=== PATIENT | male | born 1940 | race American Indian/Alaskan Native ===

== ENCOUNTER 2020-11-18 13:29 | Inpatient (IN) | payer MEDICARE, MEDICAID ==
[~2020-11-18] VITALS: Ht 177.8 cm; Wt 54.5 kg
[2020-11-18 14:00] LABS: BASOPHILS % (AUTO) 0.2 % (0-1); EOSINOPHILS % (AUTO) 0 % (0-6); HEMATOCRIT 33.9 % (42.0-52.0); HEMOGLOBIN 11.1 g/dl (14.0-17.9); LYMPHOCYTES # (AUTO) 0.9 X10'3 (1.1-4.8); LYMPHOCYTES % (AUTO) 8.3 % (21-51); MEAN CORPUSCULAR HEMOGLOBIN 29.7 PG (27.0-31.0); MEAN CORPUSCULAR HGB CONC 32.8 g/dL (33.0-36.5); MEAN CORPUSCULAR VOLUME 90.7 FL (78-98); MEAN PLATELET VOLUME 7.3 FL (7.4-10.4); MONOCYTES # (AUTO) 1.2 X10'3 (0-0.9); MONOCYTES % (AUTO) 10.6 % (2-12); NEUTROPHILS # (AUTO) 9.2 X10'3 (1.8-7.7); NEUTROPHILS % (AUTO) 80.9 % (42-75); PLATELET COUNT 204 X10'3 (140-440); RED BLOOD COUNT 3.74 X10'6 (4.70-6.10); RED CELL DISTRIBUTION WIDTH 14.9 % (11.5-14.5); WHITE BLOOD COUNT 11.4 X10'3 (4.5-11.0)
--- NOTE | 2020-11-18 14:10 | NUR ---
spoke to dr holguin regarding pt c/o and asked if he consider head ct for pt c/o headache for few days ,weakness ,lft sided weakness and leaning on his lft side .order to order head ct .
[2020-11-18 14:18] LABS: ALANINE AMINOTRANSFERASE 21 U/L (12-78); ALBUMIN 2.7 G/DL (3.4-5.0); ALBUMIN/GLOBULIN RATIO 0.6 (1.1-1.5); ALKALINE PHOSPHATASE 73 IU/L (46-116); ANION GAP 13 (8-16); BILIRUBIN,TOTAL 0.8 MG/DL (0.1-1.0); BLOOD UREA NITROGEN 20 MG/DL (7-18); BUN/CREATININE RATIO 17.1 (5.4-32.0); CALCIUM 7.8 MG/DL (8.5-10.1); CHLORIDE 102 MMOL/L (99-107); CREATININE 1.17 MG/DL (0.60-1.10); GLUCOSE 113 MG/DL (70-104); SODIUM 139 MMOL/L (135-145); TOTAL CARBON DIOXIDE 23.6 MMOL/L (24-32); TOTAL PROTEIN 7.5 G/DL (6.4-8.2); eGFR 60 ML/MIN
[2020-11-18 14:21] LABS: ASPARTATE AMINO TRANSFERASE 53 U/L (10-37); POTASSIUM 4.8 MMOL/L (3.5-5.1)
[2020-11-18 16:04] LABS: CLARITY,URINE CLOUDY (Clear); COLOR,URINE YELLOW (Yellow); NITRITES, URINE NEGATIVE (Neg); UA COLLECTION TYPE STRAIGHT CATH; UROBILINOGEN,URINE 0.2 E.U/dL (0.2-1.0)
[2020-11-18 16:05] LABS: GLUCOSE, URINE NEGATIVE (Neg); KETONES,URINE TRACE mg/dl (Neg); LEUKOCYTE ESTERASE ,URINE SMALL (Neg); OCCULT BLOOD,URINE MODERATE (Neg); PROTEIN,URINE 30 mg/dl (Neg)
[2020-11-18 16:15] LABS: WBC CASTS 0-3 /LPF (NEGATIVE)
[2020-11-18 16:16] LABS: COARSE GRANULAR CAST 0-3 /LPF (NEGATIVE); MUCUS STRANDS MODERATE /LPF (Neg); RENAL CELLS, URINE FEW /HPF; SQUAMOUS EPITHELIAL CELL,UR FEW /LPF (FEW); TRANSITIONAL EPI CELLS,URINE FEW /HPF
[2020-11-18 16:17] LABS: WBC,URINE 50-100 /HPF (0-4)
[2020-11-18 16:18] LABS: BACTERIA,URINE 4+ /HPF (Neg); RBC,URINE 0-2 /HPF (0-2)
[2020-11-18] MEDS ORDERED: normal saline 1000ML IV soln IVB ONE (16:30)
[2020-11-18] MEDS ORDERED: normal saline 1000ml 1,000 ML IV ONE (16:30)
[2020-11-18] MEDS ORDERED: CefTRIAXone/D5W-Rocephin 1gm 50 ML IV ONE (16:30)
[2020-11-18] MEDS ORDERED: acetaminophen 325mg tablet PO PRN ×2 (17:20)
[2020-11-18] MEDS ORDERED: magnesium hydroxide 30ml (MOM) UD suspension PO PRN (17:20)
[2020-11-18] MEDS ORDERED: ondansetron/PF 4mg/2ml inj IV PRN (17:20)
[2020-11-18] MEDS ORDERED: morphine 2 MG/ML inj. syringe IV PRN ×2 (17:20)
[2020-11-18] MEDS ORDERED: mag hydrox/Alum hydrox/simeth 30ml oral suspension PO PRN (17:20)
[2020-11-18] MEDS ORDERED: acetaminophen 325mg tablet PO ONE (17:25)
[2020-11-18] MEDS ORDERED: metoprolol succinate 25mg (24-HOUR) SR. Tablet PO ONE (17:25)
[2020-11-18] MEDS ORDERED: THIA100T70 PO (17:48)
[2020-11-18] MEDS ORDERED: TERA1CAP4 PO (17:48)
[2020-11-18] MEDS ORDERED: LOP12.5T PO (17:48)
[2020-11-18] MEDS ORDERED: FLO0.4C PO (17:48)
[2020-11-18] MEDS ORDERED: NEUPHOSK PO (17:48)
[2020-11-18] MEDS ORDERED: ATOR20TA PO (17:48)
[2020-11-18] MEDS ORDERED: MAGN500C16 PO (17:48)
[2020-11-18] MEDS ORDERED: FOLI0.4T14 PO (17:48)
[2020-11-18] MEDS ORDERED: DOCU100C40 PO (17:48)
[2020-11-18] MEDS ORDERED: CALC-1215 PO (17:48)
[2020-11-18] MEDS: docusate sod 100mg capsule PO SCH ×2 (20:00→21:32)
[2020-11-18] MEDS: metoprolol tartrate 25mg tablet PO SCH (21:00)
--- NOTE | 2020-11-18 21:05 | NUR ---
REPORT RECEIVED FROM DEJA YANG N [facility], PATIENT ON THE WAY AND WILL ASSUME CARE .
[2020-11-18 21:15] VITALS: BP 125/50
[2020-11-18] MEDS: normal saline 1000ml 1,000 ML IV SCH (21:28)
[2020-11-18] MEDS: tamsulosin 0.4mg capsule PO SCH (21:33)
[2020-11-18] MEDS: calcium carbonate/vitamin D3 tablet PO SCH (21:35)
--- NOTE | 2020-11-18 22:16 | NUR ---
UNABLE TO ASSESS PATIENT FOR ORTHOSTATICS DUE TO CONFUSION AND WEAKNESS. Addendum: 11/18/20 at 2219 by eBth Miller RN Amended: Links added.
[2020-11-18] MEDS: Terazosin 1mg capsule PO SCH (22:28)
--- NOTE | 2020-11-18 23:51 | NUR ---
PATIENT HAS A FEVER WITH TEMP AT 103. MD NOTIFIED AND TYLENOL ADMINISTERED PER MD ORDER.
[2020-11-19] VITALS: BP 134/58
--- NOTE | 2020-11-19 00:50 | NUR ---
RECHECKED TEMP AFTER AN HOUR AND WAS 98.8. WILL CONTINUE TO MONITOR PATIENT.
[2020-11-19] MEDS: normal saline 1000ml 1,000 ML IV SCH ×3 (03:20→18:24)
[2020-11-19 06:03] LABS: BASOPHILS % (AUTO) 0.2 % (0-1); EOSINOPHILS % (AUTO) 0 % (0-6); HEMATOCRIT 27.4 % (42.0-52.0); HEMOGLOBIN 9.2 g/dl (14.0-17.9); LYMPHOCYTES # (AUTO) 1.2 X10'3 (1.1-4.8); LYMPHOCYTES % (AUTO) 8.9 % (21-51); MEAN CORPUSCULAR HEMOGLOBIN 30.3 PG (27.0-31.0); MEAN CORPUSCULAR HGB CONC 33.5 g/dL (33.0-36.5); MEAN CORPUSCULAR VOLUME 90.6 FL (78-98); MONOCYTES # (AUTO) 1.4 X10'3 (0-0.9); MONOCYTES % (AUTO) 11.1 % (2-12); NEUTROPHILS # (AUTO) 10.3 X10'3 (1.8-7.7); NEUTROPHILS % (AUTO) 79.8 % (42-75); PLATELET COUNT 167 X10'3 (140-440); RED BLOOD COUNT 3.02 X10'6 (4.70-6.10); RED CELL DISTRIBUTION WIDTH 14.9 % (11.5-14.5); WHITE BLOOD COUNT 12.9 X10'3 (4.5-11.0)
[2020-11-19 06:44] LABS: ALBUMIN 2.1 G/DL (3.4-5.0); ANION GAP 13 (8-16); BLOOD UREA NITROGEN 20 MG/DL (7-18); CALCIUM 7.7 MG/DL (8.5-10.1); CHLORIDE 109 MMOL/L (99-107); GLUCOSE 119 MG/DL (70-104); POTASSIUM 3.7 MMOL/L (3.5-5.1); SODIUM 144 MMOL/L (135-145); TOTAL CARBON DIOXIDE 21.7 MMOL/L (24-32); eGFR 72 ML/MIN
[2020-11-19 07:00] VITALS: BP 119/51
[2020-11-19 08:00] VITALS: BP_SYST 112; BP_SYST 113; BP_DIAS 40; BP_DIAS 48
[2020-11-19] MEDS ORDERED: CefTRIAXone/D5W-Rocephin 1gm 50 ML IV SCH (08:00)
[2020-11-19] MEDS: enoxaparin 40mg/0.4ml syringe SUBCUT SCH (08:39)
[2020-11-19] MEDS: calcium carbonate/vitamin D3 tablet PO SCH ×2 (08:39→20:00)
[2020-11-19] MEDS: metoprolol tartrate 25mg tablet PO SCH ×2 (08:39→20:00)
[2020-11-19] MEDS: folic acid 1mg tablet PO SCH (08:40)
[2020-11-19] MEDS: thiamine 100mg tablet PO SCH (08:40)
[2020-11-19] MEDS: docusate sod 100mg capsule PO SCH ×3 (08:40→21:00)
[2020-11-19] MEDS: atorvastatin 20mg tablet PO SCH (08:40)
[2020-11-19] MEDS: magnesium oxide 400mg tablet PO SCH (08:40)
--- NOTE | 2020-11-19 08:40 | NUR ---
Unable to complete orthostatic bp because patient was too week to stand. laying and sitting BP taken.
--- NOTE | 2020-11-19 09:24 | NUR ---
Noted pt with a low BMI however current documented wt isn't scaled and no scaled wt hx in EMR. Unable to obtain information from pt at this time as pt A/O x 1 and confused per physical assessment. Pending documentation of PO intake on heart healthy diet. Pt documented with severe muscle weakness though no edema. Pt appears well developed well nourished per ED report. Pt currently lacks a minimum of two criteria for malnutrition. Will continue to follow and monitor qualifying criteria. Addendum: 11/19/20 at [address] Amended: Links added.
[2020-11-19 12:00] VITALS: BP 124/47
[2020-11-19] MEDS: Terazosin 1mg capsule PO SCH (21:00)
[2020-11-19] MEDS: tamsulosin 0.4mg capsule PO SCH (21:26)
[2020-11-19] MEDS: lactobacillus rhamnosus 10,000 MMU CELLS/CAPSULE PO SCH (21:29)
--- NOTE | 2020-11-19 23:30 | NUR ---
Pt. unsteady, confused and with diarrhea unable to get sitting, and standing Addendum: 11/19/20 at 2331 by Nya Pisano RN Amended: Links added.
--- NOTE | 2020-11-20 01:47 | NUR ---
Pt. confused and with diarrhea. Addendum: 11/20/20 at 0148 by Nya Pisano RN Amended: Links added.
--- NOTE | 2020-11-20 06:26 | NUR ---
Patient in room [facility]. I have received report from TREY Fay and had the opportunity to ask questions and assume patient care.
[2020-11-20] MEDS: docusate sod 100mg capsule PO SCH ×2 (06:42→20:00)
[2020-11-20 06:59] LABS: BASOPHILS % (AUTO) 0.3 % (0-1); EOSINOPHILS % (AUTO) 0.2 % (0-6); HEMATOCRIT 25.8 % (42.0-52.0); HEMOGLOBIN 8.7 g/dl (14.0-17.9); LYMPHOCYTES # (AUTO) 1.3 X10'3 (1.1-4.8); LYMPHOCYTES % (AUTO) 16.2 % (21-51); MEAN CORPUSCULAR HEMOGLOBIN 30.1 PG (27.0-31.0); MEAN CORPUSCULAR HGB CONC 33.6 g/dL (33.0-36.5); MEAN CORPUSCULAR VOLUME 89.6 FL (78-98); MEAN PLATELET VOLUME 8.3 FL (7.4-10.4); MONOCYTES # (AUTO) 1.1 X10'3 (0-0.9); MONOCYTES % (AUTO) 13.5 % (2-12); NEUTROPHILS # (AUTO) 5.7 X10'3 (1.8-7.7); NEUTROPHILS % (AUTO) 69.8 % (42-75); PLATELET COUNT 170 X10'3 (140-440); RED BLOOD COUNT 2.88 X10'6 (4.70-6.10); RED CELL DISTRIBUTION WIDTH 14.7 % (11.5-14.5); WHITE BLOOD COUNT 8.2 X10'3 (4.5-11.0)
[2020-11-20 07:00] VITALS: BP 124/46
[2020-11-20 07:14] LABS: ALBUMIN 1.8 G/DL (3.4-5.0); ANION GAP 5 (8-16); BLOOD UREA NITROGEN 18 MG/DL (7-18); BUN/CREATININE RATIO 20.9 (5.4-32.0); CALCIUM 7.5 MG/DL (8.5-10.1); CHLORIDE 108 MMOL/L (99-107); CREATININE 0.86 MG/DL (0.60-1.10); GLUCOSE 91 MG/DL (70-104); POTASSIUM 3.3 MMOL/L (3.5-5.1); SODIUM 137 MMOL/L (135-145); TOTAL CARBON DIOXIDE 23.6 MMOL/L (24-32); eGFR 86 ML/MIN
[2020-11-20] MEDS: furosemide 20MG tablet PO SCH (09:32)
[2020-11-20] MEDS: metoprolol tartrate 25mg tablet PO SCH ×2 (09:32→22:57)
[2020-11-20] MEDS: folic acid 1mg tablet PO SCH (09:32)
[2020-11-20] MEDS: thiamine 100mg tablet PO SCH (09:32)
[2020-11-20] MEDS: magnesium oxide 400mg tablet PO SCH (09:32)
[2020-11-20] MEDS: atorvastatin 20mg tablet PO SCH (09:32)
[2020-11-20] MEDS: calcium carbonate/vitamin D3 tablet PO SCH ×2 (09:33→22:58)
[2020-11-20] MEDS: enoxaparin 40mg/0.4ml syringe SUBCUT SCH (09:33)
[2020-11-20] MEDS: lactobacillus rhamnosus 10,000 MMU CELLS/CAPSULE PO SCH ×2 (09:33→22:58)
[2020-11-20] MEDS ORDERED: potassium Cl 20 mEq SR tablet PO STA (10:32)
[2020-11-20] MEDS: levoFLOXACIN 500mg tablet PO SCH (11:44)
[2020-11-20 12:00] VITALS: BP 105/46
[2020-11-20 18:00] VITALS: BP 127/53
--- NOTE | 2020-11-20 18:43 | NUR ---
Problems reprioritized. Patient report given, questions answered & plan of care reviewed with TREY Blue.
--- NOTE | 2020-11-20 19:31 | NUR ---
Pt unable to follow directions, f/c being pulled while attempting to get OOB without assist. Order for Sitter obtained. Addendum: 11/20/20 at 1935 by Marcela Gallegos RN Amended: Links added.
[2020-11-20] MEDS: tamsulosin 0.4mg capsule PO SCH (22:57)
[2020-11-20] MEDS: Terazosin 1mg capsule PO SCH (22:58)
[2020-11-20] MEDS ORDERED: LIDOcaine 2% 10ml TOPICAL JELLY (Urojet) MM ONE (23:40)
[2020-11-21] VITALS: BP 148/50
--- NOTE | 2020-11-21 00:05 | NUR ---
Patient was bladder scanned and had >636 in bladder. Had orders to flush catheter. Cath was flushed with 90cc of sterile water. Urine would not drain. Had orders to DC boyer and straight cath patient Q6h PRN. Boyer DC'd. Patient had 900cc out in straight cath. Hematuria present.
--- NOTE | 2020-11-21 06:30 | NUR ---
Patient in room [facility]. I have received report from VIVIAN YANG and had the opportunity to ask questions and assume patient care.
--- NOTE | 2020-11-21 06:51 | NUR ---
Problems reprioritized. Patient report given, questions answered & plan of care reviewed with TREY Fried.
--- NOTE | 2020-11-21 06:53 | NUR ---
Patient in room [facility]. I have received report from Su YANG and had the opportunity to ask questions and assume patient care.
[2020-11-21 07:07] LABS: BASOPHILS % (AUTO) 0.2 % (0-1); EOSINOPHILS % (AUTO) 0.3 % (0-6); HEMATOCRIT 27.1 % (42.0-52.0); HEMOGLOBIN 8.9 g/dl (14.0-17.9); LYMPHOCYTES # (AUTO) 1.2 X10'3 (1.1-4.8); MEAN CORPUSCULAR HEMOGLOBIN 29.6 PG (27.0-31.0); MEAN CORPUSCULAR HGB CONC 32.8 g/dL (33.0-36.5); MEAN CORPUSCULAR VOLUME 90.3 FL (78-98); MEAN PLATELET VOLUME 8.3 FL (7.4-10.4); MONOCYTES # (AUTO) 0.8 X10'3 (0-0.9); MONOCYTES % (AUTO) 9.5 % (2-12); NEUTROPHILS # (AUTO) 5.9 X10'3 (1.8-7.7); PLATELET COUNT 187 X10'3 (140-440); RED BLOOD COUNT 3.01 X10'6 (4.70-6.10); RED CELL DISTRIBUTION WIDTH 14.9 % (11.5-14.5); WHITE BLOOD COUNT 7.9 X10'3 (4.5-11.0)
[2020-11-21 07:15] LABS: ALBUMIN 1.8 G/DL (3.4-5.0); ANION GAP 9 (8-16); BLOOD UREA NITROGEN 18 MG/DL (7-18); BUN/CREATININE RATIO 19.8 (5.4-32.0); CALCIUM 7.7 MG/DL (8.5-10.1); CHLORIDE 109 MMOL/L (99-107); CREATININE 0.91 MG/DL (0.60-1.10); GLUCOSE 111 MG/DL (70-104); SODIUM 142 MMOL/L (135-145); TOTAL CARBON DIOXIDE 24.1 MMOL/L (24-32); eGFR 81 ML/MIN
[2020-11-21] MEDS: docusate sod 100mg capsule PO SCH ×2 (07:34→21:27)
[2020-11-21] MEDS: thiamine 100mg tablet PO SCH (07:49)
[2020-11-21] MEDS: lactobacillus rhamnosus 10,000 MMU CELLS/CAPSULE PO SCH ×2 (07:49→21:33)
[2020-11-21] MEDS: metoprolol tartrate 25mg tablet PO SCH ×2 (07:49→21:33)
[2020-11-21] MEDS: magnesium oxide 400mg tablet PO SCH (07:50)
[2020-11-21] MEDS: furosemide 20MG tablet PO SCH (07:50)
[2020-11-21] MEDS: calcium carbonate/vitamin D3 tablet PO SCH ×2 (07:50→21:28)
[2020-11-21] MEDS: folic acid 1mg tablet PO SCH (07:50)
[2020-11-21] MEDS: enoxaparin 40mg/0.4ml syringe SUBCUT SCH (07:51)
[2020-11-21] MEDS: atorvastatin 20mg tablet PO SCH (07:51)
[2020-11-21 08:00] VITALS: BP 118/61
[2020-11-21 11:00] VITALS: BP 94/60
[2020-11-21] MEDS: levoFLOXACIN 500mg tablet PO SCH (11:22)
--- NOTE | 2020-11-21 14:38 | NUR ---
PAGER ID: [phone] MESSAGE: Corky Surg [id number] Re: 360b Haley, patient no longer has a boyer catheter. would you like to DC the sitter and use bed alarm? Or did you want to keep the sitter as is? Thanks Corky.
--- NOTE | 2020-11-21 17:24 | NUR ---
Student documentation: I have reviewed and agree with all interventions, assessments performed and documented by Greg WATTS.
[2020-11-21 18:00] VITALS: BP 116/49
--- NOTE | 2020-11-21 18:54 | NUR ---
Patient voiding, no need to straight cath.
--- NOTE | 2020-11-21 18:54 | NUR ---
Problems reprioritized. Patient report given, questions answered & plan of care reviewed with Pat RN.
[2020-11-21 21:30] VITALS: BP_SYST 130; BP_SYST 148; BP_SYST 160; BP_DIAS 57; BP_DIAS 63; BP_DIAS 64
[2020-11-21] MEDS: tamsulosin 0.4mg capsule PO SCH (21:37)
[2020-11-22] VITALS: BP 116/49
[2020-11-22] MEDS: Terazosin 1mg capsule PO SCH (00:22)
[2020-11-22 06:00] LABS: BASOPHILS % (AUTO) 0.3 % (0-1); EOSINOPHILS # (AUTO) 0.1 X10'3 (0-0.9); EOSINOPHILS % (AUTO) 1.7 % (0-6); HEMATOCRIT 30.2 % (42.0-52.0); HEMOGLOBIN 9.9 g/dl (14.0-17.9); LYMPHOCYTES # (AUTO) 1.2 X10'3 (1.1-4.8); LYMPHOCYTES % (AUTO) 18.8 % (21-51); MEAN CORPUSCULAR HEMOGLOBIN 29.8 PG (27.0-31.0); MEAN CORPUSCULAR HGB CONC 32.9 g/dL (33.0-36.5); MEAN CORPUSCULAR VOLUME 90.5 FL (78-98); MEAN PLATELET VOLUME 8.3 FL (7.4-10.4); MONOCYTES # (AUTO) 0.6 X10'3 (0-0.9); MONOCYTES % (AUTO) 8.9 % (2-12); NEUTROPHILS # (AUTO) 4.7 X10'3 (1.8-7.7); NEUTROPHILS % (AUTO) 70.3 % (42-75); PLATELET COUNT 198 X10'3 (140-440); RED BLOOD COUNT 3.34 X10'6 (4.70-6.10); RED CELL DISTRIBUTION WIDTH 14.7 % (11.5-14.5); WHITE BLOOD COUNT 6.6 X10'3 (4.5-11.0)
[2020-11-22 06:29] LABS: ALBUMIN 1.9 G/DL (3.4-5.0); ANION GAP 10 (8-16); BLOOD UREA NITROGEN 18 MG/DL (7-18); BUN/CREATININE RATIO 21.2 (5.4-32.0); CALCIUM 8.3 MG/DL (8.5-10.1); CHLORIDE 111 MMOL/L (99-107); CREATININE 0.85 MG/DL (0.60-1.10); GLUCOSE 100 MG/DL (70-104); POTASSIUM 3.7 MMOL/L (3.5-5.1); SODIUM 144 MMOL/L (135-145); TOTAL CARBON DIOXIDE 22.7 MMOL/L (24-32); eGFR 87 ML/MIN
--- NOTE | 2020-11-22 06:35 | NUR ---
Patient in room [facility]. I have received report from Pat RN and had the opportunity to ask questions and assume patient care.
[2020-11-22 08:00] VITALS: BP 128/55
[2020-11-22] MEDS: atorvastatin 20mg tablet PO SCH (09:12)
[2020-11-22] MEDS: folic acid 1mg tablet PO SCH (09:12)
[2020-11-22] MEDS: furosemide 20MG tablet PO SCH (09:12)
[2020-11-22] MEDS: docusate sod 100mg capsule PO SCH (09:12)
[2020-11-22] MEDS: lactobacillus rhamnosus 10,000 MMU CELLS/CAPSULE PO SCH (09:12)
[2020-11-22] MEDS: magnesium oxide 400mg tablet PO SCH (09:13)
[2020-11-22] MEDS: calcium carbonate/vitamin D3 tablet PO SCH (09:13)
[2020-11-22] MEDS: thiamine 100mg tablet PO SCH (09:13)
[2020-11-22] MEDS: metoprolol tartrate 25mg tablet PO SCH (09:13)
[2020-11-22] MEDS: enoxaparin 40mg/0.4ml syringe SUBCUT SCH (09:14)
[2020-11-22] MEDS: levoFLOXACIN 500mg tablet PO SCH (10:59)
[2020-11-22 12:18] VITALS: BP_SYST 124; BP_SYST 97; BP_SYST 98; BP_DIAS 44; BP_DIAS 53; BP_DIAS 60
--- NOTE | 2020-11-22 16:00 | NUR ---
Patient has taken out his own IV prior to discharge. Patient report has been called to the receiving facility. Patient left with all of his belongings.
--- NOTE | 2020-11-22 17:00 | NUR ---
Student documentation: I have reviewed and agree with all interventions, assessments performed and documented by Pat WATTS.
== END 2020-11-22 15:45 | DRG 871 ==
LOC: ER 13:31 → ED HOLD 17:25 → SUR 3N 21:15
PROVIDERS: ADMIT Internal Medicine; ATTEND Internal Medicine
DX: A41.9 Sepsis, unspecified organism (principal); G93.41 Metabolic encephalopathy; E43 Unspecified severe protein-calorie malnutrition; I50.33 Acute on chronic diastolic (congestive) heart failure; N39.0 Urinary tract infection, site not specified; Z68.1 Body mass index [BMI] 19.9 or less, adult; N40.1 Benign prostatic hyperplasia with lower urinary tract symptoms; F03.90 Unspecified dementia, unspecified severity, without behavioral disturbance, psychotic disturbance, mood disturbance, and anxiety; Z66 Do not resuscitate; R31.9 Hematuria, unspecified; N13.9 Obstructive and reflux uropathy, unspecified; Z20.822 Contact with and (suspected) exposure to COVID-19; R33.8 Other retention of urine; B95.2 Enterococcus as the cause of diseases classified elsewhere; D63.8 Anemia in other chronic diseases classified elsewhere; E78.5 Hyperlipidemia, unspecified; I11.0 Hypertensive heart disease with heart failure; J44.9 Chronic obstructive pulmonary disease, unspecified
CPT/HCPCS: 36415; 70450; 71045; 80048; 80053; 81001; 83605; 83880; 84145; 85025; 87040; 87077; 87081; 87088; 87186; 87635; 93005; 93306; 97116; 97161; 97530; 97535; 99285; G0378; J0696; J1650; J7030